=== PATIENT | female | born 2000 ===

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

== ENCOUNTER 2018-09-17 16:31 | Observation (INO) | payer BC ==
[2018-09-17 16:31] VITALS: BMI 23.0
[2018-09-17] MEDS ORDERED: Sodium Chloride 0.9% 1,000 ML IV STA (16:54)
--- NOTE | 2018-09-17 17:00 | ED PDOC ---
HPI: Abdomen Time Seen by Provider: 09/17/18 16:34 Chief Complaint (Nursing): Abdominal Pain Chief Complaint (Provider): abdominal pain History Per: Patient History/Exam Limitations: no limitations Onset/Duration Of Symptoms: Hrs (this morning) Current Symptoms Are (Timing): Still Present Location Of Pain/Discomfort: Diffuse Quality Of Discomfort: Burning Associated Symptoms: Nausea, Vomiting, Back Pain, Constipation. denies: Fever, Chills, Diarrhea, Chest Pain, Urinary Symptoms Additional Complaint(s): Maite Walters is a 18 year old female, with no significant past medical history, who presents to the emergency department complaining of a constant abdominal pain that radiates to the back since this morning associated with nausea, vomiting and constipation for x3 days. Patient describes the pain as a burning sensation and states pain started in the upper abdomen but has also radiated to the lower region and back. She did not take any medication for symptoms and denies having similar symptoms in the past. Patient did not eat or drink anything different. She denies any fever, chills, diarrhea, chest pain, shortness of breath, headache, numbness, tingling, weakness or urinary symptoms. No further medical complaints. PMD: Harman Pope Past Medical History Reviewed: Historical Data, Nursing Documentation, Vital Signs Vital Signs: Last Vital Signs Temp 97.6 F 09/17/18 16:33 Pulse 120 H 09/17/18 16:33 Resp 20 09/17/18 16:33 BP 150/88 09/17/18 16:33 Pulse Ox 98 09/17/18 16:33 - Medical History PMH: No Chronic Diseases - Surgical History Other surgeries: ACL surgery - Family History Family History: States: Unknown Family Hx - Social History Current smoker - smoking cessation education provided: No Alcohol: None Drugs: Denies - Home Medications Home Medications: Ambulatory Orders Medication Instructions Recorded No Known Home Med 10/18/17 - Allergies Allergies/Adverse Reactions: Allergies Allergy/AdvReac Type Severity Reaction Status Date / Time No Known Allergies Allergy Verified 12/15/17 12:22 Review of Systems ROS Statement: Except As Marked, All Systems Reviewed And Found Negative Constitutional: Negative for: Fever, Chills Cardiovascular: Negative for: Chest Pain Respiratory: Negative for: Shortness of Breath Gastrointestinal: Positive for: Nausea, Vomiting, Abdominal Pain, Constipation. Negative for: Diarrhea Musculoskeletal: Positive for: Back Pain Neurological: Negative for: Weakness, Numbness (tingling) Physical Exam - Reviewed Nursing Documentation Reviewed: Yes Vital Signs Reviewed: Yes - Physical Exam Appears: Positive for: No Acute Distress Head Exam: Positive for: ATRAUMATIC, NORMAL INSPECTION, NORMOCEPHALIC Skin: Positive for: Normal Color, Warm, Dry Eye Exam: Positive for: Normal appearance, EOMI, PERRL Neck: Positive for: Normal, Painless ROM, Supple Cardiovascular/Chest: Positive for: Regular Rate, Rhythm. Negative for: Murmur Respiratory: Positive for: Normal Breath Sounds. Negative for: Respiratory Distress Gastrointestinal/Abdominal: Positive for: Tenderness (diffused), Guarding Back: Positive for: Normal Inspection. Negative for: L CVA Tenderness, R CVA Tenderness, Vertebral Tenderness Extremity: Positive for: Normal ROM (upper and lower extremities). Negative for: Deformity, Swelling Neurologic/Psych: Positive for: Alert, Oriented - Laboratory Results Result Diagrams: 09/17/18 17:13 09/17/18 17:13 Lab Results: 14.3 wbc - ECG O2 Sat by Pulse Oximetry: 98 (RA) Pulse Ox Interpretation: Normal - CT Scan/US ct Other Rad Studies (CT/US): Read By Radiologist Other Rad Interpretation: pancolitis - Progress ED Course And Treament: 2003: Stable. AAOx3. Multiple pain meds for control. Antibiotics given. Spoke with Dr. Medina. Medical Decision Making Medical Decision Making: Time: 16:34 Initial Impression: abdominal pain Initial Plan: --CMP --Lipase --Urine --Urine dipstick --CBC w/ differential --Obstructive series --Toradol 15 mg IVP --NaCl 1,000 ml IV 1,000 mls/hr --Zofran Inj 4 mg IV --Reevaluation Scribe Attestation: Documented by Manuel Quintana, acting as a scribe for Renny Ryan MD Provider Scribe Attestation: All medical record entries made by the Scribe were at my direction and personally dictated by me. I have reviewed the chart and agree that the record accurately reflects my personal performance of the history, physical exam, medical decision making, and the department course for this patient. I have also personally directed, reviewed, and agree with the discharge instructions and disposition. Disposition - Clinical Impression Clinical Impression: Abdominal pain, Pancolitis, Sepsis - Patient ED Disposition Is Patient to be Admitted: Yes Counseled Patient/Family Regarding: Studies Performed, Diagnosis - Disposition Disposition Time: 22:09 Condition: FAIR - Pt Status Changed To: Hospital Disposition Of: Observation
[2018-09-17 17:21] LABS: BASO % 0.1 % (0.0-2.0); EOS # 0.1 K/uL (0.0-0.7); EOS % 0.7 % (0.0-4.0); HEMOGLOBIN 12.7 g/dL (12.0-16.0); LYMPH # 1.6 K/uL (1.0-4.3); LYMPH % 11.5 % (20.0-40.0); MEAN CELL VOLUME 91.3 fl (81.0-99.0); MEAN CORPUSCULAR HEMOGLOBIN 29.9 pg (27.0-31.0); MEAN CORPUSCULAR HGB CONC 32.7 g/dL (33.0-37.0); MEAN PLATELET VOLUME 9.8 fl (7.2-11.7); MONO # 0.9 K/uL (0.0-0.8); MONO % 5.9 % (0.0-10.0); NEUT # 11.7 K/uL (1.8-7.0); NEUT % 81.8 % (50.0-75.0); NRBC % 0.1 % (0.0-0.0); RBC 4.24 Mil/uL (3.80-5.20); RED CELL DISTRIBUTION WIDTH 12.7 % (11.5-14.5); WHITE BLOOD COUNT 14.3 K/uL (4.8-10.8)
[2018-09-17 17:30] LABS: ALB/GLOB RATIO 1.4 (1.0-2.1); ALBUMIN 4.5 g/dL (3.5-5.0); ALT/SGPT 38 U/L (9-52); AST/SGOT 25 U/L (14-36); BLOOD UREA NITROGEN 18 mg/dl (7-17); CALCIUM 9.8 mg/dL (8.4-10.2); GFR NON-AFRICAN AMERICAN > 60; LIPASE 39 U/L (23-300)
[2018-09-17] MEDS ORDERED: Iohexol 240 (50 ml) PO ONE (18:52)
[2018-09-17] MEDS ORDERED: Iohexol 240 (50 ml) ONE (19:03)
[2018-09-17 20:07] LABS: SQUAMOUS EPITHIAL 25 /hpf (0-5); URINE BACTERIA RARE (<OCC); URINE BILIRUBIN NEGATIVE (NEGATIVE); URINE BLOOD NEGATIVE (NEGATIVE); URINE CLARITY CLOUDY (Clear); URINE COLOR YELLOW (YELLOW); URINE GLUCOSE (UA) NEG (NEGATIVE); URINE LEUKOCYTE ESTERASE TRACE Leu/uL (Negative); URINE PROTEIN NEGATIVE (NEGATIVE)
[2018-09-17] MEDS ORDERED: Morphine 4 MG/ML VIAL ONE (20:19)
[2018-09-17] MEDS ORDERED: Sodium Chloride 0.9% 50 ML IV ONE (20:22)
[2018-09-17] MEDS ORDERED: Iohexol 300 100 ML IJ ONE (20:22)
[2018-09-17] MEDS ORDERED: Morphine 4 MG/ML VIAL IV ONE (20:30)
[2018-09-17] MEDS ORDERED: metroNIDAZOLE 500mg/100ml NS 100 ML IV STA (21:59)
[2018-09-17] MEDS ORDERED: cefTRIAXone (Rocephin) 1 gm Inj IV ONE (21:59)
[2018-09-17] MEDS ORDERED: metroNIDAZOLE 500mg/100ml NS 100 ML IVPB ONE (22:57)
[2018-09-17] MEDS: Sodium Chloride 0.9% 1,000 ML IV SCH (23:14)
[2018-09-17 23:40] LABS: VENOUS BLOOD GAS PCO2 49 mmHg (40-60); VENOUS BLOOD GAS PO2 23 mm/Hg (30-55); VENOUS BLOOD PH 7.34 (7.32-7.43)
[2018-09-18] MEDS: metroNIDAZOLE 500mg/100ml NS 100 ML IVPB SCH ×3 (01:06→17:54)
[2018-09-18] MEDS: Sodium Chloride 0.9% 1,000 ML IV SCH ×3 (06:00→17:54)
[2018-09-18 07:04] LABS: BASO % 0.3 % (0.0-2.0); EOS # 0.1 K/uL (0.0-0.7); EOS % 2.4 % (0.0-4.0); HEMOGLOBIN 11.7 g/dL (12.0-16.0); LYMPH # 1.5 K/uL (1.0-4.3); LYMPH % 26.3 % (20.0-40.0); MEAN CELL VOLUME 90.5 fl (81.0-99.0); MEAN CORPUSCULAR HEMOGLOBIN 30.2 pg (27.0-31.0); MEAN CORPUSCULAR HGB CONC 33.3 g/dL (33.0-37.0); MEAN PLATELET VOLUME 9.9 fl (7.2-11.7); MONO # 0.6 K/uL (0.0-0.8); MONO % 9.5 % (0.0-10.0); NEUT # 3.6 K/uL (1.8-7.0); NEUT % 61.5 % (50.0-75.0); RBC 3.88 Mil/uL (3.80-5.20); RED CELL DISTRIBUTION WIDTH 12.7 % (11.5-14.5); WHITE BLOOD COUNT 5.9 K/uL (4.8-10.8)
[2018-09-18 07:27] LABS: ALB/GLOB RATIO 1.2 (1.0-2.1); ALBUMIN 3.4 g/dL (3.5-5.0); ALT/SGPT 32 U/L (9-52); AST/SGOT 18 U/L (14-36); BLOOD UREA NITROGEN 12 mg/dl (7-17); CALCIUM 8.9 mg/dL (8.4-10.2); GFR NON-AFRICAN AMERICAN > 60
[2018-09-18] MEDS: Morphine 4 MG/ML VIAL IVP PRN ×2 (08:56→12:59)
--- NOTE | 2018-09-18 09:06 | RAD ---
Date of service: 09/17/2018 PROCEDURE: Radiographs of the abdomen HISTORY: pain COMPARISON: No prior. TECHNIQUE: AP upright and supine radiographs of the abdomen. FINDINGS: bowel: Unremarkable bowel gas pattern. No evidence of mechanical obstruction. Prominent amount of retained colonic stool. Free air: None. Bones: Unremarkable. Other findings: None. IMPRESSION: Prominent amount of retained colonic stool. No evidence of mechanical bowel obstruction.
--- NOTE | 2018-09-18 10:32 | CT ---
Date of service: 09/17/2018 PROCEDURE: CT Abdomen and Pelvis with contrast HISTORY: abd pain COMPARISON: None. TECHNIQUE: Contrast dose: 95 mL Omnipaque 300 Radiation dose: Total exam DLP = 328.6 mGy-cm. This CT exam was performed using one or more of the following dose reduction techniques: Automated exposure control, adjustment of the mA and/or kV according to patient size, and/or use of iterative reconstruction technique. FINDINGS: LOWER THORAX: Unremarkable. LIVER: Mild hepatic steatosis. No gross lesion or ductal dilatation. GALLBLADDER AND BILE DUCTS: Unremarkable. PANCREAS: Unremarkable. No gross lesion or ductal dilatation. SPLEEN: Unremarkable. ADRENALS: Unremarkable. No mass. KIDNEYS AND URETERS: Unremarkable. No hydronephrosis. No solid mass. VASCULATURE: Unremarkable. No aortic aneurysm. No aortic atherosclerotic calcification or mural plaque present. BOWEL: Unremarkable. No obstruction. No gross mural thickening. APPENDIX: Normal appendix. PERITONEUM: Unremarkable. No free fluid. No free air. LYMPH NODES: Unremarkable. No enlarged lymph nodes. BLADDER: Unremarkable. REPRODUCTIVE: Small involuting left corpus luteal follicle. BONES: No acute fracture. OTHER FINDINGS: None. IMPRESSION: No acute abdominal pelvic pathology. Bowel is normal in appearance.
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
[2018-09-19] MEDS: metroNIDAZOLE 500mg/100ml NS 100 ML IVPB SCH ×2 (01:15→09:25)
[2018-09-19 07:20] LABS: BASO % 0.5 % (0.0-2.0); EOS # 0.1 K/uL (0.0-0.7); EOS % 2.7 % (0.0-4.0); HEMOGLOBIN 12.1 g/dL (12.0-16.0); LYMPH # 1.3 K/uL (1.0-4.3); LYMPH % 33.5 % (20.0-40.0); MEAN CELL VOLUME 89.7 fl (81.0-99.0); MEAN CORPUSCULAR HEMOGLOBIN 30.5 pg (27.0-31.0); MEAN CORPUSCULAR HGB CONC 34.1 g/dL (33.0-37.0); MEAN PLATELET VOLUME 9.6 fl (7.2-11.7); MONO # 0.3 K/uL (0.0-0.8); MONO % 7.7 % (0.0-10.0); NEUT # 2.2 K/uL (1.8-7.0); NEUT % 55.6 % (50.0-75.0); NRBC % 0.1 % (0.0-0.0); RBC 3.96 Mil/uL (3.80-5.20); RED CELL DISTRIBUTION WIDTH 12.6 % (11.5-14.5)
[2018-09-19 07:32] LABS: ALB/GLOB RATIO 1.1 (1.0-2.1); ALBUMIN 3.5 g/dL (3.5-5.0); ALT/SGPT 29 U/L (9-52); AST/SGOT 16 U/L (14-36); BLOOD UREA NITROGEN 6 mg/dl (7-17); CALCIUM 9.1 mg/dL (8.4-10.2); GFR NON-AFRICAN AMERICAN > 60
[2018-09-19 08:41] VITALS: BP 101/65; PULSE 68; RESP 20; TEMP 97.6; O2SAT 99
--- NOTE | 2018-09-19 08:55 | CP.PCM.PN ---
Subjective - Date & Time of Evaluation Date of Evaluation: 09/19/18 Time of Evaluation: 08:52 - Subjective Subjective: pt doign well. oliva po-liquids. will adv today. no f/c, n/vd. bw noted. final imaging reports noted. Objective - Vital Signs/Intake and Output Vital Signs (last 24 hours): Temp Pulse Resp BP Pulse Ox 97.6 F 68 20 101/65 99 09/19/18 08:40 09/19/18 08:40 09/19/18 08:40 09/19/18 08:40 09/19/18 08:40 - Medications Medications: Current Medications Acetaminophen (Tylenol 325mg Tab) 650 mg PO Q4 PRN PRN Reason: Pain, Mild (1-3) Metronidazole (Flagyl 500mg/100ml Ns) 100 mls @ 100 mls/hr IVPB Q8 LULA; Pr otocol Last Admin: 09/19/18 01:15 Dose: 100 mls/hr Ceftriaxone Sodium 1 gm/ (Sodium Chloride) 100 mls @ 100 mls/hr IVPB DAILY LULA; Protocol Last Admin: 09/18/18 09:05 Dose: 100 mls/hr Ketorolac Tromethamine (Toradol) 30 mg IVP Q6 PRN PRN Reason: Pain, moderate (4-7) Last Admin: 09/18/18 11:09 Dose: 30 mg Morphine Sulfate (Morphine) 2 mg IVP Q4 PRN PRN Reason: Pain, severe (8-10) Last Admin: 09/18/18 12:59 Dose: 2 mg Ondansetron HCl (Zofran Inj) 4 mg IVP Q6 PRN PRN Reason: Nausea/Vomiting Last Admin: 09/18/18 11:22 Dose: 4 mg - Labs Labs: 09/19/18 07:15 09/19/18 07:15 - Constitutional Appears: Well, Non-toxic, No Acute Distress - Head Exam Head Exam: ATRAUMATIC, NORMAL INSPECTION, NORMOCEPHALIC - Eye Exam Eye Exam: EOMI, Normal appearance, PERRL Pupil Exam: NORMAL ACCOMODATION, PERRL - ENT Exam ENT Exam: Mucous Membranes Moist, Normal Exam - Neck Exam Neck Exam: Full ROM, Normal Inspection. absent: Lymphadenopathy - Respiratory Exam Respiratory Exam: Clear to Ausculation Bilateral, NORMAL BREATHING PATTERN - Cardiovascular Exam Cardiovascular Exam: REGULAR RHYTHM, RRR, +S1, +S2. absent: Murmur - GI/Abdominal Exam GI & Abdominal Exam: Soft, Normal Bowel Sounds. absent: Tenderness - Extremities Exam Extremities Exam: Full ROM, Normal Capillary Refill, Normal Inspection. absent: Joint Swelling, Pedal Edema - Back Exam Back Exam: NORMAL INSPECTION - Neurological Exam Neurological Exam: Alert, Awake, CN II-XII Intact, Normal Gait, Oriented x3 - Psychiatric Exam Psychiatric exam: Normal Affect, Normal Mood - Skin Skin Exam: Dry, Intact, Normal Color, Warm Assessment and Plan (1) DVT prophylaxis Assessment & Plan: scd and ae hose ambulation Status: Acute (2) Abdominal pain Assessment & Plan: advance diet today pain and nausea control likely dc today Status: Acute
== END 2018-09-19 14:09 | disposition home or self-care (01) ==
LOC: H.ER 16:31 → H.ERHOLD 22:00 → H.MEDSURG1 23:55
PROVIDERS: ADMIT Family Medicine; ATTEND Family Medicine
DX: R10.84 Generalized abdominal pain (principal); R11.2 Nausea with vomiting, unspecified; K59.00 Constipation, unspecified
CPT/HCPCS: 36415; 74022; 74177; 80053; 81003; 81025; 82803; 83690; 85025; 87040; 87086; 87181; 96361; 96365; 96366; 96368; 96375; 99285; G0378; J0696; J1885; J2270; J2405; J7030; Q9966; Q9967